=== PATIENT | male | born 1970 | race Caucasian/White ===

== ENCOUNTER 2019-04-06 09:48 | Inpatient (IN) ==
--- OUTSIDE RECORDS SUMMARY | 2019-04-06 09:51 | External Medical Summary | Continuity of Care Document ---
:1970 Author Name Katelin Skinner Address Unavailable Unavailable , Care Team Providers Name Role Phone [email or web address] Unavailable Problems Active medical history not documented Allergies and Adverse Reactions Allergy history not documented Medications Medications not documented Procedures Procedures not documented Immunizations Immunizations not documented Plan of Treatment Planned Observations Planned Goals not documented Results No Known Results Results not documented Encounters Appointment; [facility], Laboratory 08-Aug-2009 10:45 Encounter Diagnosis: Problem not documented
[2019-04-06] MEDS ORDERED: SODIUM CHLORIDE 0.9% 1000ML 1,000 ML IV ONE (10:44)
[2019-04-06 10:51] LABS: Basophils # (auto) 0.02 K/uL (0-0.2); Basophils % (auto) 0.2 %; Eosinophils # (auto) 0.15 K/uL (0-0.5); Eosinophils % (auto) 1.7 %; Hematocrit (blood only) 30.8 % (42-52); Hemoglobin 10.5 g/dL (14.0-18.0); Immature Granulocytes # (auto) 0.02 K/uL (0.00-0.02); Immature Granulocytes % (auto) 0.2 %; Lymphocytes % (auto) 41.2 %; Mean Corpuscular Hgb Conc 34.1 g/dL (32-36); Mean Corpuscular Volume 91.4 fL (80-100); Mean Platelet Volume 10.5 fL (7.4-10.4); Monocytes # (auto) 0.74 K/uL (0.11-0.59); Monocytes % (auto) 8.2 %; Neutrophils # (auto) 4.34 K/uL (1.4-6.5); Neutrophils % (auto) 48.5 %; Platelet Count 256 K/uL (130-400); RDW Coefficient of Variation 13.1 % (11.5-14.5); RDW Standard Deviation 43.5 fL (36.4-46.3); Red Blood Count 3.37 M/uL (4.7-6.1); White Blood Count 8.97 K/uL (4.8-10.8)
[2019-04-06 11:23] LABS: Alanine Aminotransferase 38 U/L (12-78); Albumin Globulin Ratio 1.1 (0.9-2); Albumin Level 3.6 gm/dl (3.4-5.0); Alkaline Phosphatase 45 U/L (45-117); BUN Creatinine Ratio 28.8 (10-20); Bilirubin,Total 0.3 mg/dl (0.2-1); Blood Urea Nitrogen 29 mg/dl (7-18); Calcium 8.3 mg/dl (8.5-10.1); Carbon Dioxide 25 mmol/L (21-32); Chloride 107 mmol/L (98-107); Creatinine Clr Calc Pharmacy 109.7 ml/min; Est GFR (African American) 100.1; Est GFR (Non-African American) 86.3; Globulin 3.4 gm/dl (2.5-4.0); Glucose 172 mg/dl (70-99); Sodium 138 mmol/L (136-145); Troponin I < 0.015 ng/ml (0-0.045)
--- NOTE | 2019-04-06 12:18 | History & Physical Report ---
Date of Service April 06, 2019 Assessment & Plan (1) GI (gastrointestinal bleed): Suspected upper GI source with melena. Telemetry. Clear liquid diet only for now. GI consultation. Serial H&H. Pepcid IV every 12 hours. Carafate p.o. Present on Admission?: Yes (2) Hypertension: Hydrochlorothiazide and lisinopril are on hold Present on Admission?: Yes (3) Type 2 diabetes mellitus: Metformin is on hold. Sliding scale insulin coverage as needed Present on Admission?: Yes (4) DVT prophylaxis: Avoid heparin and Lovenox. SCDs ordered History of Present Illness Chief Complaint: Melena, lightheadedness Primary Care Provider: Gera Jiménez, DO 48-year-old male with a history of hypertension and diabetes. He has had several days of melena and generalized abdominal discomfort. He developed lightheadedness today. He went to urgent care and was sent to the ED for evaluation. He has Hemoccult positive melena with hemoglobin 10.5. He denies taking aspirin or nonsteroidal anti-inflammatory agents. He has no previous history of GI bleeding but appears to have an upper GI bleeding source at this time. Hemoglobin is 10.5 and he does not require blood transfusion at this t ambrose. He has signed a transfusion consent form however just in case. Metformin will be placed on hold as he will be on clear liquids and IV fluids only. Gastroenterology consultation will be requested. Protonix is on back order. He will be treated with intravenous Pepcid and Carafate suspension orally. Allergies Allergy/AdvReac Type Severity Reaction Status Date / Time No Known Allergies Allergy Unknown Verified 04/06/19 11:33 Home Medications Home Medications Medication Instructions Recorded Confirmed Type cholecalciferol (vitamin D3) 1,000 unit PO QAM 04/06/19 04/06/19 History [Vitamin D3] hydrochlorothiazide 25 mg PO QAM 04/06/19 04/06/19 History lisinopril 40 mg PO QAM 04/06/19 04/06/19 History metformin 500 mg PO BID 04/06/19 04/06/19 History multivitamin 1 tab PO QAM 04/06/19 04/06/19 History Past Med/Surg History Medical History Type 2 diabetes mellitus (Chronic) GI (gastrointestinal bleed) (Acute) Kidney stones History of prediabetes Hypertension (Chronic) No pertinent family history Surgical History No pertinent past surgical history Family History Other No pertinent family history Social History Preferred Language: Mongolian Communication Ability: Effective Visual Impairment: No Limitations Hearing Ability: Normal Feels Safe at Home: Yes Smoking Status: Never smoker Review of Systems Review of Systems: Constitutional-no fever or chills ENT-no blurred vision, no double vision, no epistaxis, no sore throat Respiratory-no cough, no wheezing, no shortness of breath Cardiac-no palpitations, no chest pain, no syncope GI-no nausea, vomiting, diarrhea, hematochezia. Melena for several days however -no urinary retention, no urinary incontinence, no dysuria, no hematuria Musculoskeletal-no joint pain, no muscle tenderness Skin-no bruising, no rashes, no pruritus Neuro-no isolated weakness, no paresthesia, no weakness Psych-no depression, no anxiety Physical Exam Physical Exam: General-alert and oriented x3, no fevers, no chills HEENT-head atraumatic and normocephalic, TMs intact bilaterally, pupils equal and reactive to light, extraocular muscles intact Neck-no lymphadenopathy or thyromegaly, trachea midline Chest-clear to auscultation percussion. No rales wheezing or rhonchi Cardiac-regular rate and rhythm, normal S1 and S2, no murmurs Abdomen-normal bowel sounds, no hepatosplenomegaly. Mild epigastric tenderness to palpation. No rebound or guarding. No palpable masses Extremities-no cyanosis, clubbing, or edema Neuro-cranial nerves II through XII intact, motor and sensory function within normal limits, strength symmetrical 5/5, no focal deficits Psych-normal affect, normal mood Results & Data Vital Signs (Past 12 Hours) Vital Signs Temp Pulse Resp BP Pulse Ox 04/06/19 11:00 94 H 18 98 04/06/19 10:10 36.8 C 100 H 18 123/80 99 Laboratory Results 04/06/19 10:40 PG Care Time/CCT Total # of Minutes Spent Total Time Spent with Patient: Total time spent is greater than 50% in coordination of care (as documented) at patient's floor/unit and/or counseling patient: (1) GI (gastrointestinal bleed) GI bleed type/associated pathology: unspecified gastrointestinal hemorrhage type Qualified Code(s): K92.2 - Gastrointestinal hemorrhage, unspecified
[2019-04-06 12:32] LABS: Partial Thromboplastin Ratio 0.9; Partial Thromboplastin Time 24.2 Seconds (21.0-31.0); Prothrombin Time 10.5 Seconds (9.0-12.0)
[2019-04-06 13:03] LABS: Potassium 3.9 mmol/L (3.5-5.1)
[2019-04-06] MEDS ORDERED: ACETAMINOPHEN 325 MG TAB PO PRN (13:33)
[2019-04-06] MEDS ORDERED: ONDANSETRON INJ 2 MG/ML 2 ML VIAL IV PRN (13:33)
--- NOTE | 2019-04-06 14:18 | XRay Report ---
XR chest 1V portable CLINICAL HISTORY: GI bleed dyspnea COMPARISON STUDY: No previous studies for comparison. FINDINGS: Elevation left hemidiaphragm. Minimal atelectasis left base. Lungs otherwise appear clear. There are no focal infiltrates. Findings of mild cardiomegaly. IMPRESSION: 1. No acute process of the chest. 2. Elevation left hemidiaphragm most likely chronic. 3. Minimal/mild atelectasis left base. The above report was generated using voice recognition software. It may contain grammatical, syntax or spelling errors. Electronically signed by: Fredrick Rosado M.D. 04/06/2019 2:17 PM
[2019-04-06] MEDS: FAMOTIDINE 20 MG in SYRINGE 3 ML IV SCH (14:19)
[2019-04-06] MEDS: SODIUM CHLORIDE 0.9% 1000ML 1,000 ML IV SCH (14:19)
[2019-04-06] MEDS: SUCRALFATE 1 GM/10 ML UDC PO SCH ×3 (14:23→20:40)
[2019-04-06 14:58] LABS: Appearance Urine Clear (Clear); Bilirubin Urine Negative (Negative); Blood Urine Negative (Negative); Color Urine Yellow; Glucose Urine UA Negative (Negative); Ketones Urine Negative (Negative); Leukocyte Esterase Urine Negative (Negative); Nitrite Urine Negative (Negative); Protein Urine Negative (Negative); Specific Gravity Urine 1.019 (1.000-1.030); Urobilinogen Urine Negative (Negative)
[2019-04-06] MEDS: INSULIN ASPART 100 UNITS/ML 3 ML PEN SC SCH ×2 (16:30→21:16)
--- NOTE | 2019-04-06 17:07 | Emergency Department Note ---
Entered by Rossy Zimmerman acting as a scribe for History of Present Illness General Chief complaint: GI Assessment Stated complaint: STOMACH PAINS, SENT FROM [facility] Source: patient Mode of arrival: ambulatory Limitations: no limitations History of Present Illness Onset (ago): week(s) 1 Location: abdomen Pain Consistency: + intermittent Exacerbated By: + eating and + other (drinking) Associated symptoms: + syncope (near) and + other (The patient complains of intermittent dark and tarry stools and lower back pain. The patient denies urinary symptoms and recent trauma. ) The patient is a 48 year old male with a history of hypertension, kidney stones, and pre-diabetes who presents to the ED with complaints of intermittent abdominal pain that onset 1 week ago. He notes that his abdominal pain is exacerbated with eating and drinking. The patient complains of intermittent dark, tarry stools for the past 5 days. He states that he developed lower back pain while at work yesterday. He notes that he then went to the bathroom and when he stood up he nearly passed out. The patient reports going to a walk-in clinic that referred him to the ED for a possible ulcer bleed. The patient denies urinary symptoms and recent trauma. Home Medications Home Medications Medication Instructions Recorded Confirmed Type cholecalciferol (vitamin D3) 1,000 unit PO QAM 04/06/19 04/06/19 History [Vitamin D3] hydrochlorothiazide 25 mg PO QAM 04/06/19 04/06/19 History lisinopril 40 mg PO QAM 04/06/19 04/06/19 History metformin 500 mg PO BID 04/06/19 04/06/19 History multivitamin 1 tab PO QAM 04/06/19 04/06/19 History Allergies Allergy/AdvReac Type Severity Reaction Status Date / Time No Known Allergies Allergy Unknown Verified 04/06/19 11:33 Past Med/Surg History Family History Other No pertinent family history Social History Preferred Language: Slovak Communication Ability: Effective Visual Impairment: No Limitations Hearing Ability: Normal Beliefs That Will Affect Care: None Current Living Situation: Spouse Feels Safe at Home: Yes Smoking Status: Never smoker Hx Alcohol Use: Yes Alcohol type: beer and hard liquor Hx Substance Use: No Review of Systems See HPI for pertinent positives & negatives. and A total of 10 systems reviewed and were otherwise negative Physical Exam Vital Signs Vital Signs - 24 hr 04/06/19 10:10 04/06/19 11:00 Temperature 36.8 C Temperature Source Oral Sepsis Recent Fever Within 48 Hours No Sepsis Action Taken by Nursing No Action Required Pulse Rate 100 H 94 H Pulse Rhythm Regular Respiratory Rate 18 18 Respiratory Effort / Characteristics Non-Labored Spontaneous Respiratory Depth Normal Blood Pressure 123/80 Blood Pressure Mean 94 Blood Pressure Position Right Lateral Pulse Oximetry 99 98 Oxygen Delivery Method Room Air Room Air GENERAL: Sitting up in bed. Alert, well appearing, well nourished, no distress, non-toxic EYE EXAM: Normal conjunctiva. OROPHARYNX: no exudate, no erythema, lips, buccal mucosa, and tongue normal and mucous membranes are moist NECK: supple, no nuchal rigidity, no adenopathy, non-tender LUNGS: Clear to auscultation. Normal chest wall mechanics HEART: no murmurs, S1 normal and S2 normal ABDOMEN: abdomen soft, non-tender, normo-active bowel sounds, no masses, no rebound or guarding. BACK: Back is symmetrical on inspection and there is no deformity, no midline tenderness, no CVA tenderness. SKIN: no rashes and no bruising UPPER EXTREMITIES: upper extremities are grossly normal. LOWER EXTREMITIES: No pitting edema. NEURO EXAM: Normal sensorium, cranial nerves II-XII grossly intact, normal speech, no gross weakness of arms, no gross weakness of legs. Course 1037: Past medical records reviewed. The patient was evaluated in room C6. A complete history and physical examination was performed. 1110: The patient has dark, tarry stools that are heme positive. 1154: I reviewed the patient's case with Dr. Tyree Fu - [facility]. He will evaluate the patient for further management. Consultations Consultation #1: 1154: I reviewed the patient's case with Dr. Tyree Fu - [facility]. He will evaluate the patient for further management. Time: 11:54 Administered Medications Sodium Chloride (Nss 1000ml) 1,000 mls @ 80 mls/hr IV .[id number] NICOLÁS Stop: 05/06/19 13:32 Last Admin: 04/06/19 14:19 Dose: 80 mls/hr Documented by: [id number] Famotidine 20 mg/ Syringe 5 mls @ 2.5 mls/min IV Q12H NICOLÁS Stop: 05/06/19 13:59 Last Admin: 04/06/19 14:19 Dose: 2.5 mls/min Documented by: [id number] Insulin Aspart (Novolog Flexpen) 0 units SC ACHS NICOLÁS Stop: 05/06/19 16:29 Last Admin: 04/06/19 16:30 Dose: Not Given Documented by: [id number] Cosigned by: [id number] Sucralfate (Carafate) 1 gm PO QID NICOLÁS Stop: 05/06/19 13:59 Last Admin: 04/06/19 16:34 Dose: 1 gm Documented by: [id number] Admin: 04/06/19 14:23 Dose: 1 gm Documented by: [id number] Discontinued Medications Sodium Chloride (Nss 1000ml) 1,000 mls @ 999 mls/hr IV .[id number] ONE Stop: 04/06/19 11:44 Last Infusion: 04/06/19 12:19 Dose: 0 mls/hr Documented by: [id number] Admin: 04/06/19 11:16 Dose: 999 mls/hr Documented by: [id number] Medical Decision Making Differential Diagnosis Differential diagnoses: Appendicitis, diverticulitis, PUD, biliary pathology, UTI, pancreatitis, obstr uction, mesenteric ischemia, aortic pathology, infections, inflammatory bowel disease, renal colic, as well as others were entertained. Medical Records Attestation: I reviewed the patient's medical records. Home Medications Current Medication List: was personally reviewed by me Laboratory Data Attestation: I reviewed the patient's lab results. Result diagrams: 04/06/19 16:15 04/06/19 12:40 Lab Results 04/06/19 04/06/19 04/06/19 Range/Units 10:40 10:40 10:40 WBC 8.97 (4.8-10.8) K/uL RBC 3.37 L (4.7-6.1) M/uL Hgb 10.5 L (14.0-18.0) g/dL Hct 30.8 L (42-52) % MCV 91.4 (80-100) fL MCH 31.2 (25-34) pg MCHC 34.1 (32-36) g/dL RDW Std Deviation 43.5 (36.4-46.3) fL RDW Coeff of Rhina 13.1 (11.5-14.5) % Plt Count 256 (130-400) K/uL MPV 10.5 H (7.4-10.4) fL Immature Gran % (Auto) 0.2 % Neut % (Auto) 48.5 % Lymph % (Auto) 41.2 % Schley % (Auto) 8.2 % Eos % (Auto) 1.7 % Baso % (Auto) 0.2 % Immature Gran # (Auto) 0.02 (0.00-0.02) K/uL Neut # (Auto) 4.34 (1.4-6.5) K/uL Lymph # (Auto) 3.70 H (1.2-3.4) K/uL Schley # (Auto) 0.74 H (0.11-0.59) K/uL Eos # (Auto) 0.15 (0-0.5) K/uL Baso # (Auto) 0.02 (0-0.2) K/uL PT (9.0-12.0) Seconds INR (0.9-1.1) APTT (21.0-31.0) Seconds PTT Ratio Sodium 138 (136-145) mmol/L Potassium (3.5-5.1) mmol/L Chloride 107 (98-107) mmol/L Carbon Dioxide 25 (21-32) mmol/L Anion Gap 6.0 (3-11) BUN 29 H (7-18) mg/dl Creatinine 1.01 (0.6-1.4) mg/dl Est Cr Clr Drug Dosing 109.7 ml/min Est GFR ( Amer) 100.1 Est GFR (Non-Af Amer) 86.3 BUN/Creatinine Ratio 28.8 H (10-20) Glucose 172 H (70-99) mg/dl Calcium 8.3 L (8.5-10.1) mg/dl Total Bilirubin 0.3 (0.2-1) mg/dl AST (15-37) U/L ALT 38 (12-78) U/L Alkaline Phosphatase 45 (45-117) U/L Troponin I < 0.015 Cancelled (0-0.045) ng/ml Total Protein 7.0 (6.4-8.2) gm/dl Albumin 3.6 (3.4-5.0) gm/dl Globulin 3.4 (2.5-4.0) gm/dl Albumin/Globulin Ratio 1.1 (0.9-2) Lipase 75 (73-393) U/L Blood Type Antibody Screen 04/06/19 04/06/19 04/06/19 Range/Units 10:40 10:57 11:42 WBC (4.8-10.8) K/uL RBC (4.7-6.1) M/uL Hgb (14.0-18.0) g/dL Hct (42-52) % MCV (80-100) fL MCH (25-34) pg MCHC (32-36) g/dL RDW Std Deviation (36.4-46.3) fL RDW Coeff of Rhina (11.5-14.5) % Plt Count (130-400) K/uL MPV (7.4-10.4) fL Immature Gran % (Auto) % Neut % (Auto) % Lymph % (Auto) % Schley % (Auto) % Eos % (Auto) % Baso % (Auto) % Immature Gran # (Auto) (0.00-0.02) K/uL Neut # (Auto) (1.4-6.5) K/uL Lymph # (Auto) (1.2-3.4) K/uL Schley # (Auto) (0.11-0.59) K/uL Eos # (Auto) (0-0.5) K/uL Baso # (Auto) (0-0.2) K/uL PT 10.5 (9.0-12.0) Seconds INR 1.0 (0.9-1.1) APTT 24.2 (21.0-31.0) Seconds PTT Ratio 0.9 Sodium (136-145) mmol/L Potassium (3.5-5.1) mmol/L Chloride (98-107) mmol/L Carbon Dioxide (21-32) mmol/L Anion Gap (3-11) BUN (7-18) mg/dl Creatinine (0.6-1.4) mg/dl Est Cr Clr Drug Dosing ml/min Est GFR ( Amer) Est GFR (Non-Af Amer) BUN/Creatinine Ratio (10-20) Glucose (70-99) mg/dl Calcium (8.5-10.1) mg/dl Total Bilirubin (0.2-1) mg/dl AST (15-37) U/L ALT (12-78) U/L Alkaline Phosphatase (45-117) U/L Troponin I (0-0.045) ng/ml Total Protein (6.4-8.2) gm/dl Albumin (3.4-5.0) gm/dl Globulin (2.5-4.0) gm/dl Albumin/Globulin Ratio (0.9-2) Lipase (73-393) U/L Blood Type O Positive Antibody Screen NEGATIVE ECG Data Attestation: I personally reviewed and interpreted this ECG as follows: Indication: other (GI assessment) Rate (beats per minute): 97 Rhythm: sinus rhythm Findings: + other (normal axis); no PVC Blood Pressure Blood Pressure Findings: Normal blood pressure MDM Narrative Patient is a 48-year-old male who presents the ER for abdominal pain associate with dark tarry stools. Patient denies any steroid use or any NSAIDs. No other complaints at this time. Labs were obtained and showed a hemoglobin of 10. No significant leukocytosis or anemia. INR was unremarkable. BMP with a slightly elevated BUN suggesting upper bleed. LFTs bilirubin and troponin was unremarkable. Lipase is normal. UA was negative. Patient had dark tarry stools which was heme positive. Patient was given IV fluids. Unable to order Protonix drip and bolus due to restriction of medication. Patient had no signs of peritonitis. Updated at bedside and discussed with the hospitalist for admission of upper GI bleed. Impression & Plan Upper gastrointestinal hemorrhage, GI (gastrointestinal bleed) Discharge Plan Visit Data *Final* Discharge Date/Time: 04/06/19 13:09 Chief Complaint: GI Assessment Stated Complaint: STOMACH PAINS, SENT FROM [facility] ED Provider: Bryce Cobian Discharge Problem: Upper gastrointestinal hemorrhage, GI (gastrointestinal bleed) Patient Disposition: Admitted As Inpatient Discharge Instructions Interventions: ED Discharge Assessment Last Done: 04/06/19 13:09 The scribe's documentation has been prepared under my direction and personally reviewed by me in its entirety. I confirm that the note above accurately reflects all work, treatment, procedures, and medical decision making performed by me.
--- NOTE | 2019-04-06 23:14 | Consultation Report ---
DATE OF CONSULTATION: 04/06/2019 SEX: Male. RACE: . ATTENDING PHYSICIAN: Dr. Aaron Clements. CONSULTING PHYSICIAN: Dr. Felix Contreras. REASON FOR CONSULTATION: GI bleed. HISTORY OF PRESENT ILLNESS: Aaron Piña is a 48-year-old male with a remote history of gastroesophageal reflux disease who had a history of a hiatal hernia repair many years ago. He developed several days of abdominal pain which was noted throughout his abdomen. He described the pain as 4-5/10 in intensity, nonradiating without alleviating or exacerbating factors. He also noted several days of melena. He developed lightheadedness early this morning and presented to the urgent care and was noted to have a low hemoglobin of 10.5 and subsequently was transferred to the Emergency Department for evaluation. He was started on IV Pepcid and given p.o. Carafate and consultation was placed to our service. At the time that I saw the patient, he states that his lightheadedness has improved. He denies any specific abdominal pain at present and states that he has had no more episodes of melena. He denies any hematemesis. He states that he has never been diagnosed with peptic ulcer disease and denies any family history of peptic ulcer disease, esophageal stomach cancer, Crohn's disease or ulcerative colitis. He states that he does not take routine medications for reflux disease as he has no symptoms following his hiatal hernia repair. He does admit to being on Nexium previously but has not had any symptoms since the hernia repair. PAST MEDICAL HISTORY: Significant for hypertension, type 2 diabetes mellitus. PAST SURGICAL HISTORY: Includes a hiatal hernia repair. ALLERGIES: None. MEDICATIONS AT PRESENT: Include Pepcid 20 mg IV q. 12 hours, multivitamin 1 tablet daily, vitamin D 1000 units q.a.m., Carafate 1 gram p.o. q.i.d. P.r.n. medications include Tylenol and Zofran. SOCIAL HISTORY: He is . He denies any tobacco or illicit drug use. He has an occasional alcoholic beverage. He works as a major gifts officer. FAMILY HISTORY: Negative for GI malignancy or inflammatory bowel disease. REVIEW OF SYSTEMS: Negative x12 system review other than pertinent positives listed in the HPI. PHYSICAL EXAMINATION: VITAL SIGNS: Temp 36.7, pulse 76, respirations 20, blood pressure 107/71, pulse ox 98% on room air. GENERAL: He is awake, cooperative, in no acute distress. HEAD: Normocephalic, atraumatic. EYES: Pupils equal, round. Extraocular muscles are intact. ENT: External evaluation of ears and nose are normal. Oropharynx is clear. NECK: Soft and supple. There is no JVD or lymphadenopathy. CHEST: Clear to auscultation bilaterally. CARDIOVASCULAR SYSTEM: Regular rate and rhythm. ABDOMEN: Soft, nontender, nondistended. Positive bowel sounds. There is no hepatosplenomegaly or stigmata of chronic liver disease. EXTREMITIES: No clubbing, cyanosis, or edema. SKIN: Soft and pink. LABORATORY STUDIES: Include a white blood cell count of 8.97, hemoglobin 10.5, hematocrit 30.8, platelet count of 256. PT 10.5, INR 1.0, BUN 28.8, creatinine 1.01. UA was negative. Chest x-ray from today shows no acute process in the chest. Elevation of left hemidiaphragm, most likely chronic and minimal to mild atelectasis in left base. IMPRESSION: This is a 48-year-old male with abdominal pain, melena and acute blood loss anemia. The differential diagnoses in this patient includes: 1. Peptic ulcer disease. 2. Gastritis. 3. Gastroesophageal reflux disease. 4. Arteriovenous malformation. 5. Malignancy, though less likely. PLAN: At the present time, I would continue him on Pepcid 20 mg IV b.i.d. I would also continue him on Carafate 1 gram p.o. q.i.d. a.c. and at bedtime. I will make him n.p.o. after midnight and recommend that he undergo an upper endoscopy tomorrow for further evaluation of his above noted symptoms. I did discuss with him the role of biopsies to rule out H. pylori. If he does in fact have peptic ulcer disease as it is the number 1 cause of ulcer formation in the world. Once again, thanks for allowing me to participate in the care of this patient. If you have any further questions, please do not hesitate in contacting me.
[2019-04-07] MEDS: FAMOTIDINE 20 MG in SYRINGE 3 ML IV SCH (03:08)
[2019-04-07] MEDS: SODIUM CHLORIDE 0.9% 1000ML 1,000 ML IV SCH ×2 (03:09→18:42)
[2019-04-07] MEDS: INSULIN ASPART 100 UNITS/ML 3 ML PEN SC SCH ×3 (08:31→17:05)
[2019-04-07] MEDS: SUCRALFATE 1 GM/10 ML UDC PO SCH ×4 (09:13→19:55)
[2019-04-07] MEDS: CHOLECALCIFEROL 1,000 UNITS TAB PO SCH (09:13)
[2019-04-07] MEDS: MULTIVITAMIN TAB PO SCH (09:13)
[2019-04-07 09:18] LABS: Calcium 8.3 mg/dl (8.5-10.1); Creatinine Clr Calc Pharmacy 114.3 ml/min; Est GFR (African American) 105.1; Est GFR (Non-African American) 90.7; Potassium 3.8 mmol/L (3.5-5.1)
--- NOTE | 2019-04-07 09:21 | Anesthesiology Consultation ---
Date of Service April 07, 2019 Assessment & Plan (1) Encounter for pre-operative examination: Chart Review Chart Review: Acceptable Risk for Surgery, Patient NOT seen in Pre Admission Testing and entry processor initiated Consults Requested none History Surgery Operation Date: 04/07/19 11:30 Proposed Procedures p Esophagogastroduodenoscopy Dr Ben Lang Case, DO Height/Weight Height: 6 ft 1 in Weight: 101.9 kg Allergies Allergy/AdvReac Type Severity Reaction Status Date / Time No Known Allergies Allergy Unknown Verified 04/06/19 11:33 Medications Home Medications Medication Instructions Recorded Confirmed Last Taken cholecalciferol (vitamin D3) 1,000 unit PO QAM 04/06/19 04/06/19 04/05/19 [Vitamin D3] hydrochlorothiazide 25 mg PO QAM 04/06/19 04/06/19 04/06/19 lisinopril 40 mg PO QAM 04/06/19 04/06/19 04/06/19 metformin 500 mg PO BID 04/06/19 04/06/19 04/06/19 multivitamin 1 tab PO QAM 04/06/19 04/06/19 04/05/19 Active Medications Generic Name Dose Route Start Last Admin Trade Name Freq PRN Reason Stop Dose Admin Sodium Chloride 1,000 mls @ 80 mls/hr 04/06/19 13:33 04/07/19 03:09 Nss 1000ml IV 05/06/19 13:32 80 mls/hr .[id number] NICOLÁS Administration Famotidine 20 mg/ Syringe 5 mls @ 2.5 mls/min 04/06/19 14:00 04/07/19 03:08 IV 05/06/19 13:59 2.5 mls/min Q12H NICOLÁS Administration Insulin Aspart 0 units 04/06/19 16:30 04/07/19 08:31 Novolog Flexpen SC 05/06/19 16:29 Not Given ACHS NICOLÁS Multivitamins 1 tab 04/07/19 09:00 04/07/19 09:13 Multivitamin Tab PO 05/07/19 08:59 Not Given QAM NICOLÁS Sucralfate 1 gm 04/06/19 14:00 04/07/19 09:13 Carafate PO 05/06/19 13:59 1 gm QID NICOLÁS Administration Vitamin D 1,000 units 04/07/19 09:00 04/07/19 09:13 Vitamin D3 PO 05/07/19 08:59 Not Given QAM [facility] Past Medical History Medical History Type 2 diabetes mellitus (Chronic) GI (gastrointestinal bleed) (Acute) Kidney stones History of prediabetes Hypertension (Chronic) Past Family History Family History Other No pertinent family history Past Surgical History Surgical History History of repair of hiatal hernia Social History Smoking Status: Never smoker Hx Alcohol Use: Yes Alcohol type: beer and hard liquor alcohol intake frequency: 0-2 drinks per day Hx Substance Use: No Physical Exam Vital Signs Last Vital Signs Temp 36.7 C 04/07/19 07:21 Pulse 77 04/07/19 07:21 Resp 16 04/07/19 07:21 BP 111/67 04/07/19 07:21 Pulse Ox 98 04/07/19 07:21 Testing Laboratory Results 04/07/19 04:04 04/07/19 08:40 PT 10.5 Seconds (9.0-12.0) 04/06/19 10:40 INR 1.0 (0.9-1.1) 04/06/19 10:40 APTT 24.2 Seconds (21.0-31.0) 04/06/19 10:40 Urine Color Yellow 04/06/19 14:45 Urine Appearance Clear (Clear) 04/06/19 14:45 Urine pH 5.0 (4.5-7.5) 04/06/19 14:45 Ur Specific [place] 1.019 (1.000-1.030) 04/06/19 14:45 Urine Protein Negative (Negative) 04/06/19 14:45 Urine Glucose (UA) Negative (Negative) 04/06/19 14:45 Urine Ketones Negative (Negative) 04/06/19 14:45 Urine Nitrite Negative (Negative) 04/06/19 14:45 Ur Leukocyte Esterase Negative (Negative) 04/06/19 14:45 Blood Type O Positive 04/06/19 10:57 Antibody Screen NEGATIVE 04/06/19 10:57 04/07/19 07:12 POC Glucose 146 H Electrocardiogram Date: 04/06/19 Findings: + NSR @ (97) Nonspecific T wave abnormality
--- NOTE | 2019-04-07 09:35 | History & Physical Bridge Note ---
Date of Service April 07, 2019 History & Physical Bridge Note I have examined the patient, reviewed the History & Physical and in the interval since the performance of the History & Physical I have noted the following changes of clinical significance: no changes noted Patient is NPO. He will proceed with EGD today. Continue medications as prescribed at present. Supervising Physician Co-Signing Physician Notes Agree with CHRISTOPHER Guzman as above Abd: Soft, NT, ND, +BS Continue current therapy Proceed with EGD today
[2019-04-07] MEDS ORDERED: MIDAZOLAM HCL 1 MG/ML 2ML VIAL ONE (11:32)
[2019-04-07] MEDS ORDERED: ONDANSETRON INJ 2 MG/ML 2 ML VIAL ONE (11:50)
[2019-04-07] MEDS ORDERED: PROPOFOL IV EMULSION 10 MG/ML 20 ML VIAL IV ONE (11:50)
[2019-04-07] MEDS ORDERED: LIDOCAINE HCL 2% 2 ML VIAL/AMP(20MG/ML) INFIL ONE (11:50)
--- NOTE | 2019-04-07 12:07 | GI REPORT ---
Patient Name: Aaron Mera Procedure Date: 04/07/2019 11:04 AM Date of : 1970 Admit Type: Inpatient Age: 48 Gender: Male Attending MD: Felix Contreras DO Procedure: Upper GI endoscopy Providers: Felix Contreras DO Referring MD: Jeff Ortega Indications: Acute post hemorrhagic anemia, Melena Medicines: Monitored Anesthesia Care Complications: No immediate complications. Estimated Blood Loss: Estimated blood loss: none. Procedure: Pre-Anesthesia Assessment: - Prior to the procedure, a History and Physical was performed, and patient medications and allergies were reviewed. The patient's tolerance of previous anesthesia was also reviewed. The risks and benefits of the procedure and the sedation options and risks were discussed with the patient. All questions were answered, and informed consent was obtained. Prior Anticoagulants: The patient has taken no previous anticoagulant or antiplatelet agents. ASA Grade Assessment: II - A patient with mild systemic disease. After reviewing the risks and benefits, the patient was deemed in satisfactory condition to undergo the procedure. After obtaining informed consent, the endoscope was passed under direct vision. Throughout the procedure, the patient's blood pressure, pulse, and oxygen saturations were monitored continuously. The Scope was introduced through the mouth, and advanced to the second part of duodenum. The upper GI endoscopy was accomplished without difficulty. The patient tolerated the procedure well. Findings: The esophagus was normal. A medium-sized hiatal hernia was present. One non-bleeding cratered gastric ulcer with no stigmata of bleeding was found at the incisura. The lesion was 5 mm in largest dimension. Biopsies were taken with a cold forceps for histology. Localized moderate inflammation characterized by erosions and erythema was found in the gastric antrum. Biopsies were taken with a cold forceps for histology. The examined duodenum was normal. Impression: - Normal esophagus. - Medium-sized hiatal hernia. - Non-bleeding gastric ulcer with no stigmata of bleeding. Biopsied. - Gastritis. Biopsied. - Normal examined duodenum. Recommendation: - [facility] patient to [facility] for [facility] care. - Advance diet as tolerated. - Continue present medications. - Await pathology results. - Return to primary care physician as previously scheduled. - Use Protonix (pantoprazole) 40 mg PO BID for 8 weeks. Felix Contreras DO 04/07/2019 12:07:16 PM This report has been signed electronically. Note Initiated On: 04/07/2019 11:04 AM Number of Addenda: 0 I attest to the content of the Intraoperative Record and orders documented therein, exceptions below {[id number]}
--- NOTE | 2019-04-07 12:42 | Anesthesiology Progress Note ---
Date of Service April 07, 2019 Anesthesia Post Procedure Vital Signs Vital Signs: Temp Pulse Pulse Resp BP Pulse Ox 04/07/19 12:22 78 16 121/73 100 04/07/19 12:08 77 16 113/69 100 04/07/19 11:59 85 16 117/72 100 04/07/19 10:38 36.9 C 76 16 129/69 100 04/07/19 07:21 36.7 C 77 16 111/67 98 04/07/19 07:17 64 04/07/19 02:52 36.4 C L 75 16 108/66 98 04/06/19 23:30 36.6 C 69 16 143/82 H 96 04/06/19 19:08 37 C 75 20 118/72 99 04/06/19 15:23 36.7 C 76 20 107/71 98 04/06/19 13:36 36.4 C L 20 99 Transfer of Care Handoff Completed per policy Notes Mental Status: alert / awake / arousable and participated in evaluation Nausea / Vomiting: adequately controlled Pain: adequately controlled Airway Patency, RR, SpO2: stable & adequate BP & HR: stable & adequate Hydration State: stable & adequate Anesthetic Complications: no major complications apparent and Pt Satisfied with anesthetic care
[2019-04-07 17:38] LABS: Hematocrit (blood only) 24.8 % (42-52); Hemoglobin 8.6 g/dL (14.0-18.0)
[2019-04-07] MEDS ORDERED: SODIUM CHLORIDE 0.9% 250 ML IV PRN (17:45)
--- NOTE | 2019-04-07 17:52 | Hospitalist Progress Note ---
Date of Service April 07, 2019 Assessment & Plan (1) GI (gastrointestinal bleed): - Presented with melena likely related to PUD. - S/p EGD today, had gastric ulcer with biopsy pending. - Advanced to regular diet following procedure; d/c IV fluids. - PPI BID x 8 weeks; Carafate 1 gm QID for 7 day course. - Anemia work up as noted below. (2) Acute anemia: - Hemoglobin is trending down -- likely related to PUD in setting of gastric ulcer and partially dilutional from IV fluids. - Will repeat CBC in the AM -- also order type and cross with labs. - Will need transfusion support if hgb <7.5. (3) Gastric ulcer: - As noted above. - Biopsy for H. Pylori is pending. (4) Hypertension: - Holding home HCTZ and Lisinopril. - BP has been well controlled. (5) Type 2 diabetes mellitus: - Holding home Metformin. - No documented recent Hgb A1C -- will order in the AM. - SSI coverage. (6) DVT prophylaxis: - SCDs; Holding pharmacologic ppx for acute bleed. Dispo: PCU/tele; discharge on 04/08 if H/H is stable. Supervising Physician Co-Signing Physician Notes Attending Attestation: Chart reviewed, care plan d/w KOBI Obrien. I agree w/ the gupta components of her documentation. Acute blood loss anemia 2nd to upper GI bleeding from gastric ulcer. No h/o alcohol abuse or excessive use of NSAIDs. Appreciate GI assistance. Cont PPI + carafate. Diet advancement. Serial labs. Jeff Ortega MD Subjective Pt. is doing well overall. Has not had any more episodes of rectal bleeding since admission. EGD showed one non bleeding gastric ulcer. H/H is trending down, will need to monitor. Review of Systems Review of Systems: All systems reviewed & are unremarkable except as noted in HPI & below Constitutional: no fever, no chills, no fatigue, no weakness and no anorexia Respiratory: no cough, no dyspnea and no dyspnea on exertion Cardiovascular: no chest pain, no palpitations and no edema Gastrointestinal: no abdominal pain, no nausea, no vomiting, no constipation, no diarrhea/loose stools, no blood in stools and no melena Genitourinary: no difficulty urinating Musculoskeletal: no back pain and no joint pain Allergy / Immunological: no rash Physical Exam Physical Exam: General: Resting comfortably in no apparent distress HEENT: NC/AT; PERRLA with EOMI; [place] conjunctiva, MMM. No erythema of posterior pharynx Neck: Supple and nontender Cardiac: RRR w/o murmurs, gallops or rubs Lungs: CTA bilaterally; No rhonchi, wheezing, or rales Abdomen: Bowel normoactive X 4; Nontender to palpation Extremities: Warm. No edema present Neuro: No focal weakness Skin: No rash Results & Data Vital Signs (Past 12 Hours) Vital Signs Temp Pulse Pulse Resp BP Pulse Ox 04/07/19 17:10 36.6 C 66 20 113/75 98 04/07/19 15:13 36.6 C 66 20 113/75 98 04/07/19 14:57 70 04/07/19 12:22 78 16 121/73 100 04/07/19 12:08 77 16 113/69 100 04/07/19 11:59 85 16 117/72 100 04/07/19 10:38 36.9 C 76 16 129/69 100 04/07/19 07:21 36.7 C 77 16 111/67 98 04/07/19 07:17 64 Laboratory Results 04/07/19 04/07/19 04/07/19 Range/Units 16:52 16:48 13:34 Hgb 8.6 L (14.0-18.0) g/dL Hct 24.8 L (42-52) % Sodium (136-145) mmol/L Potassium (3.5-5.1) mmol/L Chloride (98-107) mmol/L Carbon Dioxide (21-32) mmol/L Anion Gap (3-11) BUN (7-18) mg/dl Creatinine (0.6-1.4) mg/dl Est Cr Clr Drug Dosing ml/min Est GFR ( Amer) Est GFR (Non-Af Amer) BUN/Creatinine Ratio (10-20) Glucose (70-99) mg/dl POC Glucose 122 H 147 H (70-99) Calcium (8.5-10.1) mg/dl Crossmatch 04/07/19 04/07/19 04/07/19 Range/Units 10:20 08:40 07:12 Hgb 9.3 L (14.0-18.0) g/dL Hct (42-52) % Sodium 140 (136-145) mmol/L Potassium 3.8 (3.5-5.1) mmol/L Chloride 109 H (98-107) mmol/L Carbon Dioxide 27 (21-32) mmol/L Anion Gap 5.0 (3-11) BUN 16 (7-18) mg/dl Creatinine 0.97 (0.6-1.4) mg/dl Est Cr Clr Drug Dosing 114.3 ml/min Est GFR ( Amer) 105.1 Est GFR (Non-Af Amer) 90.7 BUN/Creatinine Ratio 16.0 (10-20) Glucose 143 H (70-99) mg/dl POC Glucose 146 H (70-99) Calcium 8.3 L (8.5-10.1) mg/dl Crossmatch 04/07/19 04/06/19 04/06/19 Range/Units 04:04 22:16 20:21 Hgb 9.3 L 9.7 L (14.0-18.0) g/dL Hct (42-52) % Sodium (136-145) mmol/L Potassium (3.5-5.1) mmol/L Chloride (98-107) mmol/L Carbon Dioxide (21-32) mmol/L Anion Gap (3-11) BUN (7-18) mg/dl Creatinine (0.6-1.4) mg/dl Est Cr Clr Drug Dosing ml/min Est GFR ( Amer) Est GFR (Non-Af Amer) BUN/Creatinine Ratio (10-20) Glucose (70-99) mg/dl POC Glucose 122 H (70-99) Calcium (8.5-10.1) mg/dl Crossmatch 04/06/19 Range/Units 10:57 Hgb (14.0-18.0) g/dL Hct (42-52) % Sodium (136-145) mmol/L Potassium (3.5-5.1) mmol/L Chloride (98-107) mmol/L Carbon Dioxide (21-32) mmol/L Anion Gap (3-11) BUN (7-18) mg/dl Creatinine (0.6-1.4) mg/dl Est Cr Clr Drug Dosing ml/min Est GFR ( Amer) Est GFR (Non-Af Amer) BUN/Creatinine Ratio (10-20) Glucose (70-99) mg/dl POC Glucose (70-99) Calcium (8.5-10.1) mg/dl Crossmatch See Detail PG Care Time/CCT Total # of Minutes Spent Total Time Spent with Patient: Total time spent is greater than 50% in coordination of care (as documented) at patient's floor/unit and/or counseling patient: (1) GI (gastrointestinal bleed) GI bleed type/associated pathology: unspecified gastrointestinal hemorrhage type Qualified Code(s): K92.2 - Gastrointestinal hemorrhage, unspecified
[2019-04-07] MEDS: PANTOprazole 40 MG TAB PO SCH (19:55)
[2019-04-08 06:42] LABS: Hematocrit (blood only) 21.8 % (42-52); Hemoglobin 7.4 g/dL (14.0-18.0); Mean Corpuscular Hgb Conc 33.9 g/dL (32-36); Mean Corpuscular Volume 93.2 fL (80-100); Mean Platelet Volume 9.2 fL (7.4-10.4); Nucleated RBC # (auto) 0.05 K/uL (0-0); Nucleated RBC % (auto) 0.6 %; Platelet Count 212 K/uL (130-400); RDW Coefficient of Variation 13.4 % (11.5-14.5); RDW Standard Deviation 45.4 fL (36.4-46.3); Red Blood Count 2.34 M/uL (4.7-6.1); White Blood Count 8.81 K/uL (4.8-10.8)
[2019-04-08 07:46] LABS: Estimated Average Glucose 157 mg/dl; Hemoglobin A1C 7.1 % (4.5-5.6)
[2019-04-08] MEDS ORDERED: SODIUM CHLORIDE 0.9% 250 ML IV PRN (07:57)
[2019-04-08] MEDS: PANTOprazole 40 MG TAB PO SCH (08:38)
[2019-04-08] MEDS: SUCRALFATE 1 GM/10 ML UDC PO SCH ×3 (08:38→17:22)
[2019-04-08] MEDS: CHOLECALCIFEROL 1,000 UNITS TAB PO SCH (08:39)
[2019-04-08] MEDS: MULTIVITAMIN TAB PO SCH (08:39)
--- NOTE | 2019-04-08 09:45 | Gastroenterology Progress Note ---
Date of Service April 08, 2019 Assessment & Plan (1) Gastric ulcer: -Continue Protonix 40 mg BID x8 weeks, after which time can decrease dosage -Carafate 1 gm four times daily before meals and at bedtime x 10 days -Avoid NSAIDs -Await pathology -Outpatient screening colonoscopy to be scheduled by our office Thank you for allowing us to participate in the care of this patient. If you should have any further questions or concerns, do not hesitate to contact us at [email or web address] [phone] or [phone]. Present on Admission?: Yes (2) Acute anemia: H/H 7.4/21.8 -Patient is currently being transfused at present -Continue to monitor H/H -Treat ulcer as per gastric ulcer treatment plan noted above Present on Admission?: Yes Supervising Physician Co-Signing Physician Notes Agree with CHRISTOPHER Guzman as above Abd: Soft, ND, +BS No overt GI bleeding Continue current therapy Will need repeat EGD in 8 weeks Will schedule screening colonoscopy at the same time Subjective Patient is a 48 yo male with anemia & melena who underwent an EGD on 04/07/2019. He was found to have a gastric ulcer, a hiatal hernia, & gastritis. He reports he has no abdominal pain and no further melena, though he has not moving his bowels today or yesterday. He is receiving a blood transfusion at present. His H/H is 7.4/21.8. He denies further complaints. He is due for a screening colonoscopy. Review of Systems Constitutional: no fever and no chills Respiratory: no cough and no dyspnea Cardiovascular: no chest pain Gastrointestinal: no abdominal pain, no heartburn, no coffee ground emesis, no hematemesis and no melena Physical Exam Constitutional: WD/WN, vitals as above Respiratory: normal respiratory effort, lungs clear to auscultation Cardiovascular: RRR, no murmur, no edema Gastrointestinal (Abdomen): normal bowel sounds, soft, nontender, no hepatosplenomegaly Results & Data Vital Signs (Past 12 Hours) Vital Signs Temp Pulse Pulse Resp BP BP Pulse Ox 04/08/19 09:22 36.7 C 89 16 143/88 H 100 04/08/19 09:09 36.7 C 90 16 146/91 H 99 04/08/19 08:56 37.1 C 90 18 145/79 H 97 04/08/19 08:52 37 C 88 16 148/79 H 98 04/08/19 08:00 68 04/08/19 07:28 36.8 C 73 19 115/73 100 04/08/19 04:10 37.0 C 84 19 117/68 99 04/07/19 23:46 37.2 C 104 H 18 122/74 97 04/07/19 22:20 91 H
--- NOTE | 2019-04-08 10:39 | Anesthesiology Progress Note ---
Date of Service April 08, 2019 Anesthesia Post Procedure Vital Signs Vital Signs: Temp Pulse Pulse Resp BP BP Pulse Ox 04/08/19 09:54 37.2 C 87 20 133/85 100 04/08/19 09:24 88 04/08/19 09:22 36.7 C 89 16 143/88 H 100 04/08/19 09:09 36.7 C 90 16 146/91 H 99 04/08/19 08:56 37.1 C 90 18 145/79 H 97 04/08/19 08:52 37 C 88 16 148/79 H 98 04/08/19 08:00 68 04/08/19 07:28 36.8 C 73 19 115/73 100 04/08/19 04:10 37.0 C 84 19 117/68 99 04/07/19 23:46 37.2 C 104 H 18 122/74 97 04/07/19 22:20 91 H 04/07/19 19:41 36.8 C 80 18 127/79 100 04/07/19 17:10 36.6 C 66 20 113/75 98 04/07/19 15:13 36.6 C 66 20 113/75 98 04/07/19 14:57 70 04/07/19 12:22 78 16 121/73 100 04/07/19 12:08 77 16 113/69 100 04/07/19 11:59 85 16 117/72 100 Notes Mental Status: alert / awake / arousable and participated in evaluation Patient Amnestic to Procedure: Yes Nausea / Vomiting: adequately controlled Pain: adequately controlled Airway Patency, RR, SpO2: stable & adequate BP & HR: stable & adequate Hydration State: stable & adequate Anesthetic Complications: no major complications apparent
[2019-04-08 14:27] LABS: Hematocrit (blood only) 23.9 % (42-52); Hemoglobin 8.3 g/dL (14.0-18.0)
[2019-04-08] MEDS ORDERED: POLYETHYLENE (MIRALAX) 17 GM PACK PO ONE (14:50)
[2019-04-08] MEDS ORDERED: LISINOPRIL 40 MG TAB PO SCH (15:00)
--- NOTE | 2019-04-08 16:18 | Discharge Summary ---
Date of Service April 08, 2019 Admission HPI Per Admitting Provider 48-year-old male with a history of hypertension and diabetes. He has had several days of melena and generalized abdominal discomfort. He developed lightheadedness today. He went to urgent care and was sent to the ED for evaluation. He has Hemoccult positive melena with hemoglobin 10.5. He denies taking aspirin or nonsteroidal anti-inflammatory agents. He has no previous history of GI bleeding but appears to have an upper GI bleeding source at this time. Hemoglobin is 10.5 and he does not require blood transfusion at this time. He has signed a transfusion consent form however just in case. Metformin will be placed on hold as he will be on clear liquids and IV fluids only. Gastroenterology consultation will be requested. Protonix is on back order. He will be treated with intravenous Pepcid and Carafate suspension orally. Admission Exam Per Admitting Provider General-alert and oriented x3, no fevers, no chills HEENT-head atraumatic and normocephalic, TMs intact bilaterally, pupils equal and reactive to light, extraocular muscles intact Neck-no lymphadenopathy or thyromegaly, trachea midline Chest-clear to auscultation percussion. No rales wheezing or rhonchi Cardiac-regular rate and rhythm, normal S1 and S2, no murmurs Abdomen-normal bowel sounds, no hepatosplenomegaly. Mild epigastric tenderness to palpation. No rebound or guarding. No palpable masses Extremities-no cyanosis, clubbing, or edema Neuro-cranial nerves II through XII intact, motor and sensory function within normal limits, strength symmetrical 5/5, no focal deficits Psych-normal affect, normal mood Principal Diagnosis Gastric Ulcer, Upper GI bleed Discharge Exam General: Resting comfortably in no apparent distress HEENT: NC/AT; PERRLA with EOMI; [place] conjunctiva, MMM. No erythema of posterior pharynx Neck: Supple and nontender Cardiac: RRR w/o murmurs, gallops or rubs Lungs: CTA bilaterally; No rhonchi, wheezing, or rales Abdomen: Bowel normoactive X 4; Nontender to palpation Extremities: Warm. No edema present Neuro: No focal weakness Skin: No rash Discharge Data Allergies Allergy/AdvReac Type Severity Reaction Status Date / Time No Known Allergies Allergy Verified 04/12/19 12:34 Consultations 04/06/19 11:55 ED Decision to Admit Stat 04/06/19 13:33 Consult Gastroenterology Routine Procedures Performed Operation Date: 04/07/19 11:30 Actual Procedures p EGD Biopsy Cytology - Felix Lang Case, DO Hospital Course (1) GI (gastrointestinal bleed): Presented with melena likely related to gastric ulcer. S/p EGD on 04/07, had gastric ulcer with biopsy pending. No active bleeding noted. Tolerating regular diet following procedure. PPI BID x 8 weeks; Carafate 1 gm QID for 10 day course. Anemia as noted below. Did not have a BM since admission, no further melena noted. Stable for discharge on 04/08, will need to f/u with GI for colonoscopy as well as repeat EGD in 8 weeks. (2) Acute anemia: Hemoglobin significantly below baseline -- likely related to PUD in setting of gastric ulcer and partially dilutional from IV fluids. Hgb 7.4 on 04/08 -- transfused 1 unit pRBCs. Responded well, post transfusion Hgb was 8.3. Script provided for lab work on Wednesday 04/11. (3) Gastric ulcer: As noted above. Biopsy for H. Pylori is pending. (4) Hypertension: Resumed Lisinopril on 04/08. Will resume HCTZ at discharge. (5) Type 2 diabetes mellitus: Holding home Metformin. Hgb A1C was 7.1 F/u with PCP. (6) DVT prophylaxis: SCDs; Held pharmacologic ppx for acute bleed. Stable for discharge on 04/08/19. Total Time Total Time Spent Total Time Spent (In Minutes): >30 minutes Total Time Includes: Examination of the Patient, Discharge Planning, Medication Reconciliation, Communication With Other Providers and Other Discharge Plan Discharge Items Patient Disposition: Home - Self-Care Reason For Visit: GI BLEED Discharge Diagnosis: Peptic Ulcer Disease Condition: Good Discharge Goals: Decrease discomfort, Improve disease control, Improve function, Increase independence, Improve nutritional status and Prevent disease Activity: As commented below Exercise/Sports: Gradually increase as tolerated Non-emergency contact: Primary Care Provider Call non-emergency contact if: you have any medication questions, your symptoms worsen, your pain is not controlled, your pain is worsening, your pain is unusual for you, your pain is concerning for you and you have a fever Follow-up/Referrals: Gera Jiménez, [Primary Care Provider] - 04/14/19 9:10 am (Please follow up with Dr. Jiménez on April 14 at 9:10am.) Diet: Regular Other Ambulatory Orders: Complete Blood Count no Diff (Timed) Timeframe: 2 Days Location: Determined by Patient Ordered By: Noemí Pang Provider Instructions: 1. Peptic Ulcer Disease * Please take a proton pump inhibitor, such as Protonix, twice daily for an 8 week course. * Please continue Carafate 1 gm four times daily to complete a 10 day course. * Avoid NSAIDs (Ibuprofen, Aleve, Motrin, etc) or Aspirin due to increasing risk of bleeding. * Please follow up with your primary care provider in 7-10 days to discuss results of EGD biopsy. * Please follow up with GI to discuss scheduling an outpatient colonoscopy and follow up EGD. * Continue regular diet as tolerated. Drink plenty of fluids at home. * Script was provided for an outpatient CBC -- results will be faxed to Dr. Jiménez. Lab work should be collected in 3 days (on Thursday). 2. Hypertension * Please resume home HCTZ and Lisinopril as prescribed. 3. Diabetes Mellitus * Please resume home Metformin as prescribed. * Hemoglobin A1C level was 7.1 -- you will need to discuss diabetic management with your PCP. 4. Please schedule an appointment with your primary care provider in 1-2 weeks to discuss this hospital admission. 5. Prescriptions for new medications (Carafate & Protonix) were sent to your pharmacy ([facility] in [place], [place]). Prescriptions: New pantoprazole 40 mg Tablet,Delayed Release (Dr/Ec) 40 mg PO BID 60 Days Qty: 120 RF: 0 Continued multivitamin Tablet 1 tab PO QAM RF: 0 metformin 500 mg tablet 500 mg PO BID RF: 0 hydrochlorothiazide 25 mg tablet 25 mg PO QAM RF: 0 lisinopril 40 mg tablet 40 mg PO QAM RF: 0 cholecalciferol (vitamin D3) [Vitamin D3] 1,000 unit Tablet 1,000 unit PO QAM RF: 0 No Action ferrous sulfate 325 mg (65 mg iron) Tablet 325 mg PO QAM RF: 0 sucralfate [Carafate] 1 gram tablet 1 gm PO ACHS 10 Days Qty: 40 RF: 0 Stand-Alone Forms: My [facility], Work/School Release (Inpt) Krames/Other Patient Handouts: Diabetes Type 2 Coping Discharge Orders: Discharge Order (Routine); Ordered 04/08/19 Ordered By: Noemí Obrien Admission Data Admit Date/Time: 04/06/19 12:13 Attending Provider: Jeff Ortega Admit Provider: Aaron Clements Primary Care Provider: Gera Jiménez Other Providers: Felix Contreras Service: Telemetry Other Interventions: Discharge Summary Assessment (RN) Last Done: 04/07/19 17:10 Pending Studies at Discharge: Yes Studies:: EGD biopsies from 04/07/19. DC Date/Time DO NOT enter until pt leaves facility: 04/08/19 17:40 Supervising Physician Co-Signing Physician Notes Attending Attestation and Discharge Note: Pt seen/examined, chart reviewed, care plan d/w PA Noemí Obrien. I agree w/ the gupta components of her discharge documentation. Acute blood loss anemia 2nd to upper GI bleeding from gastric ulcer - EGD confirmed. s/p 1 unit of PRBCs due to symptomatic anemia. No h/o alcohol abuse or excessive use of NSAIDs. Cont PPI + carafate. Will need repeat EGD in 8 weeks to ensure resolution of ulcer. Gastric biopsy pending from EGD. Tolerating diet. Discharge Hb - 8.3. Will need to take iron supplementation for minimum 3 months and will need repeat CBC a few days post-discharge to ensure stability of H/H. I personally discussed avoiding NSAIDs, excessive caffeine use, and avoidance of alcohol for several weeks in light of severity of acute blood loss anemia from the ulcer. Discharge exam - gen - NAD skin - pallor heart - RRR, s1, s2 lungs - CTA b/l abd - soft NT ND BS+ ext - no edema Jeff Ortega MD
[2019-04-08] MEDS ORDERED: DOCUSATE SODIUM 100 MG CAP PO SCH (21:00)
== END 2019-04-08 17:40 | disposition home or self-care (01) | DRG 379 ==
LOC: ED 09:48 → SUATTDRO 12:13 → 2S 12:13
DX: K25.4 Chronic or unspecified gastric ulcer with hemorrhage; Z79.899 Other long term (current) drug therapy; D64.9 Anemia, unspecified; E11.9 Type 2 diabetes mellitus without complications; K29.71 Gastritis, unspecified, with bleeding; Z79.84 Long term (current) use of oral hypoglycemic drugs; I10 Essential (primary) hypertension